=== PATIENT | male | born 1960 | race Caucasian/White ===

== ENCOUNTER 2023-03-22 14:35 | Inpatient (IN) | payer OTHER ==
[2023-03-22 14:55] VITALS: BMI 30.7
[2023-03-22] MEDS ORDERED: hydrOXYzine PAMOATE 25 MG CAPSULE (FP) PO PRN (19:47)
[2023-03-22] MEDS ORDERED: BENZONATATE 200 MG CAPSULE PO PRN (19:47)
[2023-03-22] MEDS ORDERED: BISMUTH SUBSALICYLATE 524 MG/30 ML PO PRN (19:47)
[2023-03-22] MEDS ORDERED: BENZOCAINE/MENTHOL (CHLORASEPTIC ) LOZENGE MM PRN (19:47)
[2023-03-22] MEDS ORDERED: ACETAMINOPHEN 325 MG TABLET (FP) PO PRN (19:47)
[2023-03-22] MEDS ORDERED: DICYCLOMINE HCL 10 MG CAPSULE PO PRN (19:47)
[2023-03-22] MEDS ORDERED: MAG HYDROX/AL HYDROX/SIMETH 30 ML UNIT-DOSE CUP PO PRN (19:47)
[2023-03-22] MEDS ORDERED: MAGNESIUM HYDROX 2400MG/30ML ORAL SUSPENSION 30 ML CUP PO PRN (19:47)
[2023-03-22] MEDS ORDERED: ONDANSETRON *ODT* 4 MG TABLET SL PRN (19:47)
[2023-03-22] MEDS ORDERED: IBUPROFEN 600 MG TABLET (FP) PO PRN (19:47)
[2023-03-22] MEDS ORDERED: guaiFENesin 600 MG TABLET.ER (FP) PO PRN (19:47)
[2023-03-22] MEDS ORDERED: NALOXONE HCL 0.4 MG/ML VIAL IM PRN (19:47)
[2023-03-22] MEDS ORDERED: NALOXONE HCL (KLOXXADO) 8 MG SPRAY NS PRN (19:47)
[2023-03-22] MEDS ORDERED: METHOCARBAMOL 500 MG TABLET PO PRN (19:47)
[2023-03-22] MEDS ORDERED: POLYETHYLENE GLYCOL (HEALTHYLAX) 3350 17 GM PACKET PO PRN (19:47)
[2023-03-22] MEDS ORDERED: IBUPROFEN 400 MG TABLET (FP) PO PRN (19:47)
[2023-03-22] MEDS ORDERED: MELATONIN 5 MG TABLETS PO SCH (22:00)
[2023-03-22] MEDS: traZODone HCL 100 MG TABLET (FP) PO SCH (22:21)
[2023-03-22] MEDS: THIAMINE 100 MG TABLET PO SCH (22:21)
[2023-03-22] MEDS: diazePAM 5 MG TABLET PO SCH (22:21)
[2023-03-22] MEDS: APIXABAN 5 MG TABLET PO SCH (22:30)
[2023-03-22] MEDS: MELATONIN 5 MG TABLETS PO SCH (23:25)
[2023-03-23] MEDS: PRENATAL VITAMINS W/ FOLIC ACID TABLET (FP) PO SCH (10:24)
[2023-03-23] MEDS: ATORVASTATIN CA 80 MG TABLET (FP) PO SCH (10:24)
[2023-03-23] MEDS: CLOPIDOGREL BISULFATE 75 MG TABLET (FP) PO SCH (10:24)
[2023-03-23] MEDS: ATENOLOL 25 MG TABLET (FP) PO SCH (11:00)
[2023-03-23] MEDS: PNEUMOC 20-VAL CONJ-DIP CRM/PF 0.5 ML SYRINGE IM ONE (12:49)
[2023-03-23] MEDS: traZODone HCL 100 MG TABLET (FP) PO SCH (22:13)
[2023-03-24] MEDS: diazePAM 5 MG TABLET PO SCH (05:11)
[2023-03-24] MEDS: diazePAM 5 MG TABLET PO PRN (11:09)
[2023-03-24 12:10] LABS: HEMATOCRIT 41.9 % (35.4-49); HEMOGLOBIN 13.8 GM/dL (11.7-16.9); MCH 31.4 pg (25.7-33.7); MCHC 32.8 g/dl (32.0-35.9); MEAN CELL VOLUME 95.5 fl (80-96); MEAN PLT VOLUME 8.1 fl (7.5-11.1); PLATELET COUNT 360 10^3/uL (134-434); RBC 4.39 M/mm3 (4.00-5.60); RDW 15.7 % (11.9-15.9); WHITE BLOOD COUNT 12.3 K/mm3 (4.0-10.0)
[2023-03-24 12:24] LABS: POTASSIUM 4.2 mmol/L (3.5-5.1)
[2023-03-24 12:36] LABS: ALBUMIN 3.3 g/dl (3.4-5.0); CALCIUM 8.9 mg/dL (8.5-10.1)
[2023-03-24 12:37] LABS: BLOOD UREA NITROGEN 14.1 mg/dL (7-18)
[2023-03-24 12:40] LABS: CREATININE 0.9 mg/dL (0.55-1.3)
[2023-03-24 12:41] LABS: BILIRUBIN,TOTAL 0.5 mg/dL (0.2-1); TOT PROT 6.3 g/dl (6.4-8.2)
[2023-03-25] MEDS: diazePAM 5 MG TABLET PO SCH (05:22)
[2023-03-25 11:03] LABS: BASO % 0.8 % (0-2.0); HEMATOCRIT 41.9 % (35.4-49); HEMOGLOBIN 13.8 GM/dL (11.7-16.9); LYMPH % 32.5 % (8-40); MCH 31.6 pg (25.7-33.7); MEAN CELL VOLUME 95.7 fl (80-96); MEAN PLT VOLUME 7.9 fl (7.5-11.1); MONO % 14.1 % (3.8-10.2); NEUT % 47.6 % (42.8-82.8); PLATELET COUNT 360 10^3/uL (134-434); RBC 4.37 M/mm3 (4.00-5.60); RDW 15.6 % (11.9-15.9); WHITE BLOOD COUNT 12.6 K/mm3 (4.0-10.0)
[2023-03-26] MEDS: diazePAM 5 MG TABLET PO ONE (05:48)
[2023-04-01] MEDS: LOPERAMIDE HCL 2 MG CAPSULE PO PRN (08:56)
[2023-04-09 07:53] VITALS: BP 113/74; PULSE 71; RESP 18; TEMP 97.4
== END 2023-04-09 09:16 | disposition home or self-care (01) | DRG 895 ==
LOC: YASAS 14:35 → Y6N 20:22 → Y3E 03-26 12:13
PROVIDERS: ADMIT Allergy & Immunology; ATTEND Psychiatry & Neurology Pain Medicine
PROC: HZ42ZZZ Group Counseling for Substance Abuse Treatment, Cognitive-Behavioral (ICD-10-PCS; principal; 2023-03-22)
DX: F10.20 Alcohol dependence, uncomplicated (principal); F12.20 Cannabis dependence, uncomplicated; F41.9 Anxiety disorder, unspecified; F43.10 Post-traumatic stress disorder, unspecified; I48.91 Unspecified atrial fibrillation; I10 Essential (primary) hypertension; M54.50 Low back pain, unspecified; G89.29 Other chronic pain; Z79.01 Long term (current) use of anticoagulants; Z86.19 Personal history of other infectious and parasitic diseases; Z86.73 Personal history of transient ischemic attack (TIA), and cerebral infarction without residual deficits; Z87.891 Personal history of nicotine dependence; Z91.410 Personal history of adult physical and sexual abuse; Z63.0 Problems in relationship with spouse or partner; Z96.82 Presence of neurostimulator
CPT/HCPCS: 36415; 80053; 85025; 85027; 86780; 87635; 90677; 93005; 93010; G0009